=== PATIENT | female | born 1985 | race Caucasian/White ===

== ENCOUNTER 2022-01-06 19:55 | Inpatient (IN) | payer OTHER ==
[2022-01-06] MEDS ORDERED: OXYTOCIN 20 UNITS in 0.9% NS 20 UNIT/1,000 ML INFUS.BAG IV ONE (20:34)
[2022-01-06] MEDS ORDERED: LIDOCAINE HCL 1% PRESERVATIVE FREE - 30ML VIAL ONE (20:47)
[2022-01-06 21:14] LABS: BASO % 0.2 % (0-2.0); EOS % 0.1 % (0-4.5); HEMATOCRIT 36.8 % (32.4-45.2); HEMOGLOBIN 12.5 GM/dL (10.7-15.3); LYMPH % 9.5 % (8-40); MCH 31.2 pg (25.7-33.7); MCHC 33.9 g/dl (32.0-36.0); MEAN CELL VOLUME 92.1 fl (80-96); MEAN PLT VOLUME 8.1 fl (7.5-11.1); MONO % 5.2 % (3.8-10.2); PLATELET COUNT 179 10^3/uL (134-434); WHITE BLOOD COUNT 12.9 K/mm3 (4.0-10.0)
[2022-01-06] MEDS ORDERED: DEXTROSE 5%-LACTATED RINGERS 1,000 ML IV SCH (21:30)
[2022-01-06] MEDS ORDERED: WITCH HAZEL 50% (TUCKS) 40 PAD/JAR PAD TP PRN (21:31)
[2022-01-06] MEDS ORDERED: METHYLERGONOVINE MALEATE 0.2 MG/1 ML AMP IM PRN (21:31)
[2022-01-06] MEDS ORDERED: BISACODYL 10 MG SUPP.RECT RC PRN (21:31)
[2022-01-06] MEDS ORDERED: ACETAMINOPHEN 325 MG TABLET (FP) PO PRN (21:31)
[2022-01-06] MEDS ORDERED: BENZOCAINE 28 GM HEMORRHOIDAL OINTMENT TP PRN (21:31)
[2022-01-06] MEDS ORDERED: BENZOCAINE 20% 57 GM BOTTLE TP PRN (21:31)
[2022-01-06] MEDS ORDERED: oxyCODONE HCL 5 MG TABLET PO PRN (21:31)
[2022-01-06 21:37] LABS: ALBUMIN 2.7 g/dl (3.4-5.0); BLOOD UREA NITROGEN 12.9 mg/dL (7-18); CALCIUM 8.6 mg/dL (8.5-10.1)
[2022-01-06 21:40] LABS: CREATININE 0.6 mg/dL (0.55-1.3)
[2022-01-06 21:41] LABS: BILIRUBIN,TOTAL 0.5 mg/dL (0.2-1); TOT PROT 5.8 g/dl (6.4-8.2)
[2022-01-06] MEDS ORDERED: OXYTOCIN 20 UNITS in 0.9% NS 20 UNIT/1,000 ML INFUS.BAG IV SCH (21:45)
[2022-01-06 22:15] VITALS: BMI 25.0
[2022-01-06 23:10] LABS: SYPHILIS W/ RPR CONF NON-REACTIVE (NONREACTIVE)
[2022-01-06 23:39] LABS: HIV INTERPRETATION NEGATIVE (NEGATIVE)
[2022-01-06 23:52] LABS: INR 0.93 (0.83-1.09); PROTHROMBIN TIME (PATIENT) 10.7 SEC (9.7-13.0)
[2022-01-06 23:54] LABS: ACTIVATED PTT 25.4 SECONDS (25.2-36.5)
[2022-01-07 00:45] LABS: COCAINE, UR NEGATIVE (NEGATIVE); METHADONE, UR NEGATIVE (NEGATIVE); OPIATES, URI NEGATIVE (NEGATIVE); PHENCYCLIDINE,URINE NEGATIVE (NEGATIVE); URINE AMPHETAMINES NEGATIVE (NEGATIVE); URINE BARBITURATES NEGATIVE (NEGATIVE); URINE BENZODIAZEPINES NEGATIVE (NEGATIVE)
[2022-01-07 09:22] LABS: BASO % 0.2 % (0-2.0); EOS % 0.2 % (0-4.5); HEMATOCRIT 31.5 % (32.4-45.2); HEMOGLOBIN 10.7 GM/dL (10.7-15.3); LYMPH % 14.1 % (8-40); MCH 31.4 pg (25.7-33.7); MCHC 34.1 g/dl (32.0-36.0); MEAN PLT VOLUME 8.3 fl (7.5-11.1); MONO % 6.9 % (3.8-10.2); NEUT % 78.6 % (42.8-82.8); PLATELET COUNT 167 10^3/uL (134-434); RBC 3.42 M/mm3 (3.60-5.2); RDW 14.1 % (11.6-15.6)
[2022-01-07] MEDS: IBUPROFEN 600 MG TABLET (FP) PO PRN (10:40)
[2022-01-07] MEDS: PRENATAL VITAMINS W/ FOLIC ACID TABLET (FP) PO SCH (10:40)
[2022-01-07 17:54] VITALS: RESP 18
[2022-01-07] MEDS ORDERED: SENNOSIDES/DOCUSATE COMBO (SENNA PLUS) TABLET (UD) PO PRN (22:00)
[2022-01-08 01:13] VITALS: PULSE 89
[2022-01-08] MEDS: PRENATAL VITAMINS W/ FOLIC ACID TABLET (FP) PO SCH (10:18)
[2022-01-08] MEDS: IBUPROFEN 600 MG TABLET (FP) PO PRN (10:18)
[2022-01-08 11:32] VITALS: BP 119/78; TEMP 97.8
== END 2022-01-08 14:00 | disposition home or self-care (01) | DRG 560 ==
LOC: JDEL 19:55 → JLDR 20:22 → J3W 01-07 00:07
PROVIDERS: ADMIT Obstetrics & Gynecology; ATTEND Obstetrics & Gynecology
PROC: 10E0XZZ Delivery of Products of Conception, External Approach (ICD-10-PCS; principal; 2022-01-06)
PROC: 0W8NXZZ Division of Female Perineum, External Approach (ICD-10-PCS; 2022-01-06)
DX: O62.3 Precipitate labor (principal); O66.0 Obstructed labor due to shoulder dystocia; Z3A.39 39 weeks gestation of pregnancy; Z37.0 Single live birth
CPT/HCPCS: 36415; 59409; 80053; 80307; 85025; 85610; 85730; 86762; 86780; 86850; 86900; 86901; 87340; 87389; C9803-CS; U0003; U0005

== ENCOUNTER 2024-02-22 23:40 | Inpatient (IN) | payer OTHER ==
[2024-02-22] MEDS: OXYTOCIN 10 UNITS/ML VIAL IM ONE (23:53)
[2024-02-23] MEDS: OXYTOCIN 20 UNITS in 0.9% NS 20 UNIT/1,000 ML INFUS.BAG IV SCH
[2024-02-23] MEDS ORDERED: OXYTOCIN 20 UNITS in 0.9% NS 20 UNIT/1,000 ML INFUS.BAG IV ONE (00:09)
[2024-02-23 00:26] LABS: BASO % 0.1 % (0-2.0); EOS % 0.2 % (0-4.5); HEMATOCRIT 38.5 % (32.4-45.2); HEMOGLOBIN 12.6 GM/dL (10.7-15.3); MCH 29.5 pg (25.7-33.7); MCHC 32.8 g/dl (32.0-36.0); MEAN CELL VOLUME 90.2 fl (80-96); MEAN PLT VOLUME 8.5 fl (7.5-11.1); MONO % 3.9 % (3.8-10.2); NEUT % 83.8 % (42.8-82.8); PLATELET COUNT 197 10^3/uL (134-434); RBC 4.27 M/mm3 (3.60-5.2); RDW 14.1 % (11.6-15.6); WHITE BLOOD COUNT 18.1 K/mm3 (4.0-10.0)
[2024-02-23 00:31] LABS: INR 0.83 (0.83-1.09); PROTHROMBIN TIME (PATIENT) 9.6 SEC (9.7-13.0)
[2024-02-23 00:34] LABS: ACTIVATED PTT 25.2 SECONDS (25.2-36.5)
[2024-02-23 00:49] LABS: CHLORIDE 109 mmol/L (98-107); POTASSIUM 3.8 mmol/L (3.5-5.1); SODIUM 140 mmol/L (136-145)
[2024-02-23 00:50] LABS: CALCIUM 8.7 mg/dL (8.5-10.1)
[2024-02-23 00:51] LABS: ANION GAP 10 mmol/L (4-13); BLOOD UREA NITROGEN 18.1 mg/dL (7-18); CO2 21 mmol/L (21-32); GLUCOSE,RANDOM 152 mg/dL (74-106)
[2024-02-23] MEDS ORDERED: IBUPROFEN 600 MG TABLET (FP) PO PRN (00:53)
[2024-02-23] MEDS ORDERED: BENZOCAINE 20% 57 GM BOTTLE TP PRN (00:53)
[2024-02-23] MEDS ORDERED: BISACODYL 10 MG SUPP.RECT RC PRN (00:53)
[2024-02-23] MEDS ORDERED: WITCH HAZEL 50% (TUCKS) 40 PAD/JAR PAD TP PRN (00:53)
[2024-02-23] MEDS ORDERED: BENZOCAINE 28 GM HEMORRHOIDAL OINTMENT TP PRN (00:53)
[2024-02-23] MEDS ORDERED: METHYLERGONOVINE MALEATE 0.2 MG/1 ML AMP IM PRN (00:53)
[2024-02-23] MEDS ORDERED: ACETAMINOPHEN 325 MG TABLET (FP) PO PRN (00:53)
[2024-02-23 00:54] LABS: CREATININE 0.8 mg/dL (0.55-1.3)
[2024-02-23 03:43] VITALS: BMI 25.3
[2024-02-23] MEDS: ELECTROLYTE-148 SOLN 1,000 ML IV SCH (04:41)
[2024-02-24 07:59] LABS: BASO % 0.5 % (0-2.0); EOS % 1.9 % (0-4.5); HEMATOCRIT 33.1 % (32.4-45.2); HEMOGLOBIN 11.1 GM/dL (10.7-15.3); LYMPH % 33.5 % (8-40); MCH 30.2 pg (25.7-33.7); MCHC 33.6 g/dl (32.0-36.0); MEAN CELL VOLUME 89.8 fl (80-96); MEAN PLT VOLUME 7.8 fl (7.5-11.1); MONO % 5.3 % (3.8-10.2); NEUT % 58.8 % (42.8-82.8); PLATELET COUNT 162 10^3/uL (134-434); RBC 3.69 M/mm3 (3.60-5.2); RDW 14.2 % (11.6-15.6); WHITE BLOOD COUNT 11.3 K/mm3 (4.0-10.0)
[2024-02-24 08:39] VITALS: BP 110/68; PULSE 69; RESP 16; TEMP 98
[2024-02-24] MEDS ORDERED: SENNOSIDES/DOCUSATE COMBO (SENNA PLUS) TABLET (UD) PO PRN (22:00)
== END 2024-02-24 12:25 | disposition home or self-care (01) | DRG 560 ==
LOC: JLDR 23:40 → J3W 02-23 04:03
PROVIDERS: ADMIT Obstetrics & Gynecology; ATTEND Obstetrics & Gynecology
PROC: 10E0XZZ Delivery of Products of Conception, External Approach (ICD-10-PCS; principal; 2024-02-23)
PROC: 0KQM0ZZ Repair Perineum Muscle, Open Approach (ICD-10-PCS; 2024-02-23)
DX: O70.1 Second degree perineal laceration during delivery (principal); O69.81X0 Labor and delivery complicated by cord around neck, without compression, not applicable or unspecified; Z3A.39 39 weeks gestation of pregnancy; Z37.0 Single live birth
CPT/HCPCS: 36415; 59409; 80048; 85025; 85610; 85730; 86780; 86850; 86900; 86901